=== PATIENT | male | born 1995 | race Caucasian/White ===

== ENCOUNTER 2021-12-13 15:46 | Emergency (ER) | payer OTHER, SELFPAY ==
--- NOTE | ~2021-12-13 | CT_ITS ---
EXAMINATION: NONCONTRAST HEAD CT NONCONTRAST MAXILLOFACIAL CT NONCONTRAST CERVICAL SPINE CT INDICATION INFORMATION: Fall, facial injury. COMPARISON: Cervical spine CT 05/11/2016. CT head 03/23/2016. TECHNIQUE: Separate noncontrast CT examinations of the head, maxillofacial bones, and cervical spine were performed. Coronal and sagittal images were created for each examination at the technologist workstation. This CT examination was performed using dose optimization techniques as appropriate, variously including the following: *Automated exposure control *Adjustment of mA and/or kV according to patient size (this includes techniques or standardized protocols for targeted exams where dose is matched to indication/reason for exam; i.e. extremities or head) *Use of iterative reconstruction technique DLP: 677, 457 and 436 mGy-cm FINDINGS: Head: There is no evidence of acute intracranial hemorrhage or territorial infarction. No abnormal mass effect or midline shift is seen. Funez to white matter differentiation is well preserved. No extra-axial fluid collections are identified. No hydrocephalus. No significant volume loss. There is no abnormal attenuation within the brain parenchyma. No acute soft tissue abnormality. No calvarial fracture. The mastoid air cells are well aerated. Maxillofacial: No acute maxillofacial fractures are seen. Innumerable periapical lucencies and dental cavities with mucosal thickening of the inferior maxillary sinuses. No air-fluid level. The mandibular heads are well-seated in the condylar fossa. The orbits demonstrate a normal appearance bilaterally. The globes are intact, and there are no suspicious findings to suggest retrobulbar hemorrhage. Cervical spine: There is anatomic alignment of the vertebral bodies and posterior elements. The atlantoaxial and atlantooccipital articulations are intact. Vertebral body heights and intervertebral disc spaces are maintained. No evidence of acute fracture. No prevertebral soft tissue swelling. The palatine tonsils are prominent. Only a minimal portion of the left lung apex is included within the field of view, which appears clear. The right apex is outside of the field of view. The thyroid gland is unremarkable. CT/CT cervical spine wo con IMPRESSION: No acute intracranial abnormality. No acute maxillofacial fracture. No acute cervical spine fracture or malalignment. Numerous periapical lucencies and dental cavities, recommend dental referral. There is mucosal thickening of the maxillary sinuses which could potentially be related with odontogenic sinusitis. Correlate clinically. Prominent palatine tonsils, recommend correlation with direct visualization.
--- NOTE | 2021-12-13 07:43 | ECG_ITS ---
Test Reason : syncope Blood Pressure : / mmHG Vent. Rate : 109 BPM Atrial Rate : 109 BPM P-R Int : 156 ms QRS Dur : 078 ms QT Int : 322 ms P-R-T Axes : 054 001 009 degrees QTc Int : 433 ms Sinus tachycardia Minimal voltage criteria for LVH, may be normal variant ( R in aVL ) Possible Inferior infarct (cited on or before 23-MAR-2016) Abnormal ECG When compared with ECG of 13-DEC-2021 16:49, QRS axis Shifted left Non-specific change in ST segment in Lateral leads Referred By: Sharona Mills Electronically Signed By:CHINTAN WEIR
[2021-12-13 16:13] VITALS: BP 144/83; BP 159/100; PULSE 120; PULSE 123; RESP 17; TEMP 37.3; O2SAT 96; O2SAT 97; BMI 32.3
--- NOTE | 2021-12-13 16:33 | ED.GENADULT ---
HPI - General Adult General Chief complaint: Syncope Stated complaint: syncope Time Seen by Provider: 12/13/21 16:33 Source: patient and EMS Mode of arrival: EMS Limitations: no limitations History of Present Illness HPI narrative: Patient is a 26 year old male presenting to the emergency department today after a syncopal episode. Patient states that he was at a car show all day today, not drinking water. Patient states that when he got home, he felt lightheaded and passed out, falling forward, hitting his face on a glass cabinet. Patient states that he remembers everything leading up to the fall and waking up from the fall. Patient states all that is bothering him now is the cut on his forehead. Patient denies any current dizziness, lightheadedness, abdominal pain, nausea, vomiting, fever, chills, blurry vision, double vision, loss of vision, chest pain, difficulty breathing, shortness of breath, back pain, night sweats, pain with urination, increased urinary frequency, increased urinary urgency, blood in his urine or stool, syncope or a near syncopal episode, bowel incontinence, bladder incontinence, bowel retention, bladder retention, or any other complaints at this time. Onset (ago): minute(s) Location: face Radiation: non-radiation Severity: mild Severity scale (1-10): 1 Quality: dull Relieving factors: none Exacerbating factors: none Associated symptoms: denies other symptoms Treatments prior to arrival: none Related Data Allergies Allergy/AdvReac Type Severity Reaction Status Date / Time No Known Allergies Allergy Unverified 01/11/20 19:02 [No Known Allergies*] Review of Systems Constitutional: Constitutional: Reports no additional constitutional complaints, Denies chills, Denies fever(s) and Denies night sweats Eyes: Eyes: Reports no additional eye complaints, Denies blurry vision, Denies change in vision, Denies diplopia, Denies eye discharge, Denies loss of vision and Denies eye pain ENT: Denies dizziness Cardiovascular: Cardiovascular: Reports no additional cardiovascular complaints, Denies chest pain, Denies lightheadedness, Denies Loss of Consciousness and Denies dyspnea Respiratory: Respiratory: Reports no additional respiratory complaints and Denies dyspnea Gastrointestinal: Gastrointestinal: Reports no additional gastrointestinal complaints, Denies abdominal pain, Denies melena, Denies hematochezia, Denies change in bowel habits and Denies change in stool character Genitourinary: Genitourinary: Reports no additional male genitourinary complaints, Denies hematuria, Denies oliguria, Denies difficulty urinating, Denies dysuria, Denies urinary frequency, Denies urinary hesitancy, Denies urinary incontinence and Denies urinary urgency Musculoskeletal: Musculoskeletal: Reports no additional musculoskeletal complaints, Denies numbness and Denies tingling Integumentary/Breasts: Comments: abrasion to the forehead Neurologic: Denies dizziness, Denies loss of vision, Denies numbness and Denies tingling Psychiatric: Psychiatric: Reports no additional psychiatric complaints Endocrine: Endocrine: Reports no additional endocrine complaints Hematologic/Lymphatic: Hematologic/Lymphatic: Reports no additional hematologic/lymphatic complaints Allergic/Immunologic: Allergic/Immunologic: Reports no additional allergic/immunologic complaints PMFSH Past Medical History Attestation statement: The following information was validated with the patient. Source: old records reviewed Social History Social History Advance Directives: No Advance Directives Information Provided: No Physical Exam ED Vital Signs: Vital Signs - 24 hr 12/13/21 16:13 12/13/21 17:46 Temperature 99.1 F 98.2 F Pulse Rate 123 H 94 Respiratory Rate 17 16 Blood Pressure 144/83 H 142/83 H Pulse Oximetry 97 98 Oxygen Delivery Method Room Air Room Air BMI result Body Mass Index 32.3 Const General: cooperative, no acute distress, alert and awake Nutritional Appearance: well nourished Orientation/consciousness: patient oriented x3 Limitations: no limitations [facility] Head: Yes normal to inspection and Yes atraumatic Ears: hearing grossly normal bilaterally and external ears normal General nose exam: Normal external nose present, no nasal discharge noted and no epistaxis Face and sinus: Yes normal facial exam, No abrasion and No laceration Mouth: Normal oral and palatal mucosa present, no drooling and no muffled voice Teeth and gingiva: poor dentition Eyes General: appearance normal, both eyes and all related structures Periorbital: periorbital findings normal Eyelids: Yes eyelids normal Conjunctivae: conjunctivae normal Pupils: Equal, round and reactive pupils present EOM: EOMs intact bilaterally Neck Neck: Yes normal visual inspection, Yes full ROM and Yes no lymphadenopathy Chest Chest palpation & inspection: normal inspection of the chest Resp Effort & Inspection: normal respiratory effort and able to speak in complete sentences Auscultation: clear to auscultation bilaterally Cardio Rate: regular rate Rhythm: regular rhythm GI Inspection: Yes normal to inspection Palpation (GI): Soft to palpation, not firm, nontender, no guarding and not rigid Skin Other: small cut to the forehead, no active bleeding, no gaping areas Neuro General: patient oriented x3 and moves all extremities Cranial nerves: Yes Equal, round and reactive pupils present Cognition (Neuro): normal cognition Motor exam (neuro): 5/5 motor strength present throughout Sensory Exam: Normal double simultaneous stimulation for sensation Coordination: [id number] test normal Extrem General: Yes normal to inspection, Yes full ROM and Yes capillary refill normal Psych Appearance: grossly normal Mental Status: mental status grossly normal Affect: normal affect Attitude: cooperative Thought process: Normal thought process present Thought content: Normal thought content present Insight: Good insight present (Psych) Medical Decision Making MDM Narrative Medical decision making narrative: Patient is a 26 year old male presenting to the emergency department today after a syncopal episode. Patient's physical exam showed a small, superficial, laceration not requiring manual closure, to the center of his forehead with no gaping or active bleeding. Additionally, the patient had poor dentition. Patient's blood work was unremarkable. Patient's EKG was unremarkable. Patient's head, C-Spine and facial CTs showed no acute traumatic process. However, the patient's facial CT did show extensive poor dentition that the radiologist the patient follow up with a dentist for. I explained my physical exam findings as well as all test results to the patient. I answered all questions asked by the patient. Patient stated that he previously followed with a dentist but an incident occurred where the wrong tooth was removed and he has since stopped seeing that dentist. Patient received IV fluids which he stated helped his symptoms significantly. I stressed the importance of the patient taking his medication as prescribed. I stressed the importance of the patient following up with his primary care provider and a dentist. I stressed the importance of the patient returning to the emergency department immediately if his symptoms were to worsen or if he were to develop any dizziness, shortness of breath, difficulty breathing, chest pain, blurry vision, loss of vision, nausea, vomiting, abdominal pain, fever, chills, back pain, or any other complaints. Patient verbalized agreement and understanding with this treatment plan and discharge. Differential Diagnosis Differential Diagnosis: fall, dehydration Medical Records Medical records reviewed: Yes I reviewed the patient's medical records. Lab Data Lab results reviewed: Yes I reviewed the patient's lab results. Result diagrams: 12/13/21 17:10 12/13/21 17:10 Labs: Lab Results 12/13/21 12/13/21 12/13/21 Range/Units 17:10 17:10 17:10 WBC 7.8 (4.8-10.8) X10*3/uL RBC 4.79 (4.60-5.80) X10*6/uL Hgb 13.6 L (14.0-18.0) g/dl Hct 40.7 L (42.0-52.0) % MCV 85.0 (80.0-98.0) fL MCH 28.4 (27.0-33.0) pg MCHC 33.4 (31.0-36.0) g/dl RDW 13.2 (11.0-16.0) % Plt Count 247 (160-400) X10*3/uL MPV 10.3 (9.4-12.4) fL Immature Gran % (Auto) 0.6 H (0.0-0.4) % Neut % (Auto) 68.8 (45-73) % Lymph % (Auto) 18.4 L (20-40) % Hitchcock % (Auto) 8.8 (2-11) % Eos % (Auto) 3.1 (0-4) % Baso % (Auto) 0.3 (0-2) % Lymph # (Auto) 1.4 (1.2-4.9) X10*3/uL Hitchcock # (Auto) 0.7 (0.1-1.2) X10*3/uL Eos # (Auto) 0.2 (0.0-0.4) X10*3/uL Baso # (Auto) 0.0 (0.0-0.2) X10*3/uL Abs Immat Gran (auto) 0.05 H (0.00-0.03) X10*3/uL Absolute Neuts (auto) 5.3 (2.0-8.3) x10*3/uL Absolute Nucleated RBC 0.000 (0.0-0.012) X10*3/uL Nucleated RBC % (auto) 0.0 (0.0-0.2) /100WBC Sodium 142 (135-145) mmol/L Potassium 4.7 (3.3-5.1) mmol/L Chloride 107 (96-108) mmol/L Carbon Dioxide 26 (22-29) mmol/L Anion Gap 14 (12-20) BUN 13 (9-16) mg/dL Creatinine 0.97 (0.5-1.4) mg/dL Estim Creat Clear Calc 119.5 Estimated GFR > 60 Random Glucose 98 (60-115) mg/dL Calcium 8.9 (8.4-10.2) mg/dL Magnesium 2.0 (1.6-2.6) mg/dL Total Bilirubin 0.4 (0.0-1.0) mg/dL AST 14 (5-37) U/L ALT 21 (0-40) U/L Alkaline Phosphatase 74 (39-117) U/L Total Creatine Kinase 143 (38-174) U/L Troponin I High Sens < 3.5 (<3.5-35.0) ng/L Total Protein 6.5 (6.5-8.0) g/dL Albumin 3.9 (3.5-5.0) g/dL Imaging Data CT scan head, C-Spine, facial: Attestation: I personally reviewed and interpreted this imaging study as follows: My impression: No acute trauamtic process. Radiologist's impression: EXAMINATION: NONCONTRAST HEAD CT NONCONTRAST MAXILLOFACIAL CT NONCONTRAST CERVICAL SPINE CT INDICATION INFORMATION: Fall, facial injury. COMPARISON: Cervical spine CT 05/11/2016. CT head 03/23/2016. TECHNIQUE: Separate noncontrast CT examinations of the head, maxillofacial bones, and cervical spine were performed. Coronal and sagittal images were created for each examination at the technologist workstation. This CT examination was performed using dose optimization techniques as appropriate, variously including the following: *Automated exposure control *Adjustment of mA and/or kV according to patient size (this includes techniques or standardized protocols for targeted exams where dose is matched to indication/reason for exam; i.e. extremities or head) *Use of iterative reconstruction technique DLP: 677, 457 and 436 mGy-cm FINDINGS: Head: There is no evidence of acute intracranial hemorrhage or territorial infarction. No abnormal mass effect or midline shift is seen. Funez to white matter differentiation is well preserved. No extra-axial fluid collections are identified. No hydrocephalus. No significant volume loss. There is no abnormal attenuation within the brain parenchyma. No acute soft tissue abnormality. No calvarial fracture. The mastoid air cells are well aerated. Maxillofacial: No acute maxillofacial fractures are seen. Innumerable periapical lucencies and dental cavities with mucosal thickening of the inferior maxillary sinuses. No air-fluid level. The mandibular heads are well-seated in the condylar fossa. The orbits demonstrate a normal appearance bilaterally. The globes are intact, and there are no suspicious findings to suggest retrobulbar hemorrhage. Cervical spine: There is anatomic alignment of the vertebral bodies and posterior elements. The atlantoaxial and atlantooccipital articulations are intact. Vertebral body heights and intervertebral disc spaces are maintained.? No evidence of acute fracture. No prevertebral soft tissue swelling. The palatine tonsils are prominent. Only a minimal portion of the left lung apex is included within the field of view, which appears clear. The right apex is outside of the field of view. The thyroid gland is unremarkable. CT/CT head/brain wo con IMPRESSION: No acute intracranial abnormality. ? No acute maxillofacial fracture. ? No acute cervical spine fracture or malalignment. ? Numerous periapical lucencies and dental cavities, recommend dental referral. There is mucosal thickening of the maxillary sinuses which could potentially be related with odontogenic sinusitis. Correlate clinically. ? Prominent palatine tonsils, recommend correlation with direct visualization. Dictated By: Raven Hein Signed By: Electronically signed by Raven?Angel Luis 12/13/21 4516 ECG Data Attestation: I personally reviewed and interpreted this ECG as follows: Prior ECG tracings: available for review Interpretation: Vent. Rate: 118 BPM ? ? Atrial Rate: 118 BPM P-R Int: 150 ms? QRS Dur: 078 ms QT Int: 316 ms ? ? ? P-R-T Axes: 000 180 163 degrees QTc Int: 442 ms ? Sinus tachycardia Right axis deviation Possible Inferior infarct (cited on or before 23-MAR-2016) Abnormal ECG When compared with ECG of 23-MAR-2016 12:55, QRS axis Shifted right T wave inversion now evident in Lateral leads DD/ [id number] Discharge Plan Discharge Clinical Impression: Dehydration Patient Disposition: Home, Self-Care Instructions: Dehydration (ED) Additional Instructions: Follow up with your primary care provider. Return to the emergency department immediately if your symptoms worsen or if you develop any dizziness, shortness of breath, difficulty breathing, chest pain, blurry vision, loss of vision, nausea, vomiting, abdominal pain, fever, chills, back pain, or any other complaints. Call or visit any of the clinics below to establish with a dentist: [facility] [address] [place] [address] [facility] [address] [facility], [address] [address] [facility] [address] [place] [address] [facility] [address] [place] [id number] [facility] [address] [place] [address] [place] [address] [place] [address] [place] [facility] [place] (Call to establish and follow up with a primary care provider. If you already have a primary care provider, please call and follow up with them. ) [facility] [place] [facility] [place]Provider Group] (Call to establish and follow up with a primary care provider. If you already have a primary care provider, please call and follow up with them. ) [facility] [place] [facility] [Provider Group] (Call to establish and follow up with a primary care provider. If you already have a primary care provider, please call and follow up with them. ) Stand Alone Forms: Work/School Release Print Language: German
--- NOTE | 2021-12-13 16:34 | ECG_ITS ---
Test Reason : SYNCOPEE Blood Pressure : / mmHG Vent. Rate : 118 BPM Atrial Rate : 118 BPM P-R Int : 150 ms QRS Dur : 078 ms QT Int : 316 ms P-R-T Axes : 000 180 163 degrees QTc Int : 442 ms Sinus tachycardia Right axis deviation Possible Inferior infarct (cited on or before 23-MAR-2016) Abnormal ECG When compared with ECG of 23-MAR-2016 12:55, QRS axis Shifted right T wave inversion now evident in Lateral leads Referred By: Ana Cristina Barragan Electronically Signed By:CHINTAN WEIR
[2021-12-13 17:17] LABS: MANUAL DIFF FLAG NO
[2021-12-13 17:18] LABS: Basophils Percent Auto 0.3 % (0-2); Eosinophils Absolute Auto 0.2 X10*3/uL (0.0-0.4); Eosinophils Percent Auto 3.1 % (0-4); Hematocrit 40.7 % (42.0-52.0); Hemoglobin 13.6 g/dl (14.0-18.0); Imm Gran Abs Auto 0.05 X10*3/uL (0.00-0.03); Imm Gran Pct Auto 0.6 % (0.0-0.4); Lymphocytes Absolute Auto 1.4 X10*3/uL (1.2-4.9); Lymphocytes Percent Auto 18.4 % (20-40); Mean Corpuscular HGB Conc 33.4 g/dl (31.0-36.0); Mean Corpuscular Hemoglobin 28.4 pg (27.0-33.0); Mean Platelet Volume 10.3 fL (9.4-12.4); Monocytes Absolute Auto 0.7 X10*3/uL (0.1-1.2); Monocytes Percent Auto 8.8 % (2-11); Neutrophils Absolute Auto 5.3 x10*3/uL (2.0-8.3); Neutrophils Percent Auto 68.8 % (45-73); Platelet Count 247 X10*3/uL (160-400); Red Blood Count 4.79 X10*6/uL (4.60-5.80); Red Cell Distribution Width 13.2 % (11.0-16.0); White Blood Count 7.8 X10*3/uL (4.8-10.8)
[2021-12-13] MEDS: 0.9 % Sodium Chloride 1,000 ML 999 ML IV (17:34)
[2021-12-13 17:38] LABS: Alanine Aminotransferase 21 U/L (0-40); Albumin Level 3.9 g/dL (3.5-5.0); Alkaline Phosphatase 74 U/L (39-117); Anion Gap 14 (12-20); Aspartate Amino Transferase 14 U/L (5-37); Bilirubin Total 0.4 mg/dL (0.0-1.0); Blood Urea Nitrogen 13 mg/dL (9-16); Calcium 8.9 mg/dL (8.4-10.2); Carbon Dioxide 26 mmol/L (22-29); Chloride 107 mmol/L (96-108); Creatinine Clr Calc Pharmacy 119.5; Estimated Glomerular Filt Rate > 60; Glucose Random 98 mg/dL (60-115); Potassium 4.7 mmol/L (3.3-5.1); Sodium 142 mmol/L (135-145); Total Protein 6.5 g/dL (6.5-8.0)
[2021-12-13 17:41] LABS: Troponin-I High Sensitivity < 3.5 ng/L (<3.5-35.0)
[2021-12-13 17:46] VITALS: BP 142/83; PULSE 94; RESP 16; TEMP 36.8; O2SAT 98
--- NOTE | 2021-12-13 18:41 | PC.NURSE ---
a/o x4 . pearrla . heart rate regular at 88 beats . lungs clear . skin pink warm and dry . patient has superficial scratches to bridge of nose , tip of nose from syncope episode . patient reports feeling dizzy and the next thing he knew he was on thew ground . abdomen soft . non tender . positive bowel sounds . patient aware of need of urine sample . patient aware of plan of care .
== END 2021-12-13 19:11 | disposition home or self-care (01) ==
PROVIDERS: Physician Assistant Medical; Emergency Provider Emergency Medicine
DX: E86.0 Dehydration (principal); S01.81XA Laceration without foreign body of other part of head, initial encounter; W01.190A Fall on same level from slipping, tripping and stumbling with subsequent striking against furniture, initial encounter; F12.90 Cannabis use, unspecified, uncomplicated; Y93.89 Activity, other specified; Y92.019 Unspecified place in single-family (private) house as the place of occurrence of the external cause; Y99.9 Unspecified external cause status; Z87.891 Personal history of nicotine dependence
CPT/HCPCS: 36415; 70450; 70486; 72125; 80053; 82550; 83735; 84484; 85025; 93005; 96360; 99284; 99285

== ENCOUNTER 2022-06-16 08:47 | Emergency (ER) | payer OTHER, SELFPAY ==
[2022-06-16 08:56] VITALS: BP 137/91; PULSE 96; RESP 18; TEMP 36.4; O2SAT 97; BMI 32.3
--- NOTE | 2022-06-16 09:19 | ED.DENTAL ---
HPI - Dental/Oral General Chief complaint: Dental/Oral Stated complaint: Dental pain Time Seen by Provider: 06/16/22 09:17 Source: patient Mode of arrival: ambulatory History of Present Illness HPI Narrative: 26-year-old male with no significant past medical history presenting to the ED complaining of left lower dental pain x few days with radiation to neck and ear. Reports chronic dental issues needing all teeth extracted however unable to get in with dentist. Denies intraoral swelling, drainage, fever, chills, difficulty/inability to swallow MD Complaint: tooth pain Related Data Previous Rx's Medication Instructions Recorded acetaminophen 500 mg tablet 500 mg PO Q6H PRN fever or pain 06/16/22 (Tylenol Extra Strength) #14 tabs amoxicillin 875 mg-potassium 1 tab PO BID 7 days #14 tabs 06/16/22 clavulanate 125 mg tablet ibuprofen 800 mg tablet 800 mg PO Q8H PRN pain #14 tabs 06/16/22 Allergies Allergy/AdvReac Type Severity Reaction Status Date / Time No Known Allergies Allergy Unverified 01/11/20 19:02 [No Known Allergies*] Review of Systems Review of Systems: Constitutional: No Fever, No Chills ENT/Mouth: +dental pain, + Ear Pain, No Nasal Congestion, No Hoarseness, No sore throat, No Rhinorrhea, No Swallowing Difficulty Cardiovascular: No Chest Pain, No SOB Respiratory: No Cough Gastrointestinal: No Nausea, No Vomiting,No Abdominal pain Musculoskeletal: No joint pain, No Myalgias, No Joint Swelling Skin: No Skin Lesions, No rash Neuro: No Weakness, +PRIETO Yes all other systems are reviewed and are negative Constitutional: Constitutional: Reports as per [facility] Past Medical History Attestation statement: The following information was validated with the patient. Social History Social History Patient Tobacco Use Status: Former Tobacco user Substance Use Type: Marijuana Advance Directives: No Advance Directives Information Provided: No Physical Exam Vital Signs: Vital Signs: Last Vital Signs Temp 97.6 F 06/16/22 08:56 Pulse 96 06/16/22 08:56 Resp 18 06/16/22 08:56 BP 137/91 H 06/16/22 08:56 Pulse Ox 97 06/16/22 08:56 O2 Del Method 06/16/22 08:56 BMI result Body Mass Index 32.3 Const: General: cooperative, healthy appearing and no acute distress Orientation/consciousness: patient oriented x3 Limitations: no limitations HEENT: Head: Yes normal to inspection and Yes atraumatic Ears: hearing grossly normal bilaterally, external ears normal, TM's normal bilaterally and mastoids normal General nose exam: Normal external nose present Face and sinus: Yes normal facial exam Mouth: Normal oral and palatal mucosa present and no drooling Teeth and gingiva: caries, gingiva abnormal (+L lower gingival erythema and tenderness. No fluctuance/induration) without any purulent discharge and poor dentition Throat: Yes posterior oropharynx normal, Yes tonsils normal, Yes uvula midline, No peritonsillar mass and No uvular edema Eyes: General: appearance normal, both eyes and all related structures EOM: EOMs intact bilaterally Neck: Neck: Yes normal visual inspection and Yes no meningeal signs Resp: Effort & Inspection: normal respiratory effort and no respiratory distress Cardio: Rate: regular rate Skin: Rashes: no rashes Wounds: no wounds Neuro: General: patient oriented x3, tone normal and no meningeal signs Gait exam (Neuro): Normal gait present Extrem: General: Yes normal to inspection Medications Administered Discontinued Medications Generic Name Dose Route Start Last Admin Trade Name Freq PRN Reason Stop Dose Admin Amoxicillin/Clavulanate Potassium 875 mg 06/16/22 09:23 06/16/22 09:35 Amoxicillin/Potassium Clav 875 Mg Tablet PO 06/16/22 09:24 875 mg ONCE ONE Administration Ibuprofen 600 mg 06/16/22 09:23 06/16/22 09:35 Ibuprofen 600 Mg Tablet PO 06/16/22 09:24 600 mg ONCE ONE Administration Medical Decision Making Medical Decision Making MDM Narrative: 26-year-old male with no significant past medical history presenting to the ED complaining of left lower dental pain x few days with radiation to neck and ear. On exam vital signs stable, NAD, nontoxic appearing, physical exam as noted above with diffuse dental caries/poor dentition and left lower gingival erythema, tenderness and inflammation. No fluctuance/induration. No evidence of dental or gingival abscess. Plan: P.o. antibiotics, dentistry follow-up Results discussed with patient including worrisome signs and symptoms and strict return precautions, and when to return to the emergency department. They verbalized understanding and feel safe for discharge at this time. Differential Diagnosis Differential Diagnoses: The differential diagnosis associated with the presentation includes As above Prescription Management I considered prescription management with: Pain Medication and Antibiotic Discharge Plan Discharge Clinical Impression: Dental caries Patient Disposition: Home, Self-Care Instructions: Tooth Extraction (DC) Additional Instructions: Augmentin is antibiotics because prescribed. Take ibuprofen and Tylenol for pain and inflammation. Ice painful area. If pain or symptoms become worse or persistent, you drainage in mouth, or facial swelling/fever return to the ED Prescriptions: New amoxicillin-pot clavulanate 875-125 mg tablet 1 tab PO BID 7 Days Qty: 14 0RF ibuprofen 800 mg tablet 800 mg PO Q8H PRN (Reason: pain) Qty: 14 0RF acetaminophen [Tylenol Extra Strength] 500 mg tablet 500 mg PO Q6H PRN (Reason: fever or pain) Qty: 14 0RF Referrals: Zeke Anders [Dentist] - Randy Cates DMD [Dentist] - Slava Hanks DMD [Dentist] - Interventions: ED Discharge Assessment Last Done: 06/16/22 09:46 Discharge Date/Time: 06/16/22 09:48
[2022-06-16] MEDS: Ibuprofen 600 MG TABLET PO (09:35)
[2022-06-16] MEDS: Amoxicillin/Potassium Clav 875 MG TABLET PO (09:35)
== END 2022-06-16 09:48 | disposition home or self-care (01) ==
PROVIDERS: Emergency Provider Emergency Medicine
DX: K02.9 Dental caries, unspecified (principal); K08.89 Other specified disorders of teeth and supporting structures; Z87.891 Personal history of nicotine dependence; F12.90 Cannabis use, unspecified, uncomplicated
CPT/HCPCS: 99283

== ENCOUNTER 2022-09-02 06:25 | Emergency (ER) | payer OTHER, SELFPAY ==
[2022-09-02 06:29] VITALS: BP 155/107; PULSE 84; RESP 17; TEMP 36.1; O2SAT 99; BMI 33.9
--- NOTE | 2022-09-02 07:48 | ED_ITS ---
HPI - Dental/Oral General Chief complaint: Dental/Oral Stated complaint: Oral and jaw pain Time Seen by Provider: 09/02/22 07:38 Source: patient Mode of arrival: ambulatory Limitations: no limitations History of Present Illness HPI Narrative: 26-year-old male who presents emergency department for evaluation right upper jaw pain secondary to dental infection/poor dentition. The patient states that he has been having right upper jaw pain for months. He states that he was seen here in our emergency department and other emergency depart recently for similar pain. Patient states that he has seen a dentist his referred him to an oral surgeon. He states that the oral surgeon is not able to see him for another month. He is currently complaining of pain in his right upper jaw, the pain is a constant, dull pain which is greater than 10/10. He states that his jaw is swollen. He denied fever or chills. Patient does have a history of cardiomyopathy but he states that he has not been able follow-up with a tanning solution maker since he does not have a PCP. Related Data Previous Rx's Medication Instructions Recorded acetaminophen 500 mg tablet 500 mg PO Q6H PRN fever or pain 06/16/22 (Tylenol Extra Strength) #14 tabs amoxicillin 875 mg-potassium 1 tab PO BID 7 days #14 tabs 06/16/22 clavulanate 125 mg tablet ibuprofen 800 mg tablet 800 mg PO Q8H PRN pain #14 tabs 06/16/22 clindamycin HCl 300 mg capsule 600 mg PO TID 7 days #42 caps 09/02/22 morphine 15 mg immediate release 15 mg PO Q4-6H PRN pain #14 tabs 09/02/22 tablet Allergies Allergy/AdvReac Type Severity Reaction Status Date / Time No Known Allergies Allergy Verified 09/02/22 06:27 [No Known Allergies*] Review of Systems Review of Systems: Yes all other systems are reviewed and are negative [facility] Past Medical History [facility] Narrative: Past medical history: Dental caries with dental infection, cardiomyopathy. Social History Social History Patient Tobacco Use Status: Former Tobacco user Substance Use Type: Marijuana Advance Directives: No Advance Directives Information Provided: Yes Physical Exam Vital Signs: Vital Signs: Last Vital Signs Temp 98.1 F 09/02/22 07:54 Pulse 77 09/02/22 07:54 Resp 18 09/02/22 07:54 BP 151/100 H 09/02/22 07:54 Pulse Ox 97 09/02/22 07:54 O2 Del Method Room Air 09/02/22 07:54 BMI result Body Mass Index 33.9 Vital signs were reviewed, patient does have an elevated blood pressure but he is having pain General: Awake, alert, male patient, pleasant, cooperative in no distress Mouth: The patient has severe dental jayme right upper jaw . The patient has tenderness over the decayed teeth. There is no gingival tenderness or gingival swelling. Patient does have some mid tree to his right side of his face compare to the left. Neck: Supple no adenopathy Medical Decision Making Medical Decision Making MDM Narrative: 26-year-old male with a known dental caries who has just completed a course of antibiotics (amoxicillin) without any relief of his discomfort. Based on his exam I suspect that he has ongoing infection therefore he was started on clindamycin 600 mg 3 times a day for 7 days. He was advised to take ibuprofen and Tylenol for pain and for pain not relieved by these medications she was prescribed morphine. Patient was advised to contact his oral surgeon to see if he can move up his appointment. Patient was also given numbers for PCPs and ordered to get follow-up for his cardiomyopathy. Differential Diagnosis Differential includes was not limited to dental caries, dental abscess Discharge Plan Discharge Clinical Impression: Dental caries, Dental abscess Patient Disposition: Home, Self-Care Instructions: Dental Abscess (ED) Additional Instructions: Your pain is most likely caused by an infection of the teeth in your right upper jaw that her DKA below the gum line. Take clindamycin 300 mg, 2 pill 3 times a day for 7 days Take ibuprofen 200 mg pills, 3 pills every 6 hours as needed for pain. Take Tylenol (acetaminophen) 2 pills every 4-6 hours as needed for pain. For pain not relieved by ibuprofen or Tylenol take morphine 15 mg pills, 1 pill every 4 hours as needed for pain. This medication will make you sleepy, do not drive or work while taking this medication. Morphine is a narcotic medication and can be addicting. If you are concerned about addiction you can ask the pharmacist for less pills or do not get this prescription filled. Call your oral surgeon's office today to see if they can move up your appointment Please return to the emergency department if your symptoms get worse or if you develop any symptoms that are concerning to you. Call the numbers that I gave you to try to get a primary care doctor so that you can get follow-up for your cardiomyopathy. Cardiomyopathy can get worse without treatment so it is important that you get help with this condition. Prescriptions: New clindamycin HCl 300 mg capsule 600 mg PO TID 7 Days Qty: 42 0RF morphine 15 mg tablet 15 mg PO Q4-6H PRN (Reason: pain) Qty: 14 0RF Rx Instructions: Patient may request partial fill; Partial Fill upon patient request. No Action amoxicillin-pot clavulanate 875-125 mg tablet 1 tab PO BID 7 Days Qty: 14 0RF ibuprofen 800 mg tablet 800 mg PO Q8H PRN (Reason: pain) Qty: 14 0RF acetaminophen [Tylenol Extra Strength] 500 mg tablet 500 mg PO Q6H PRN (Reason: fever or pain) Qty: 14 0RF Stand Alone Forms: Work/School Release
[2022-09-02 07:54] VITALS: BP 151/100; PULSE 77; RESP 18; TEMP 36.7; O2SAT 97
--- NOTE | 2022-09-02 08:05 | PC.NURSE ---
eval and dc by provider
== END 2022-09-02 08:06 | disposition home or self-care (01) ==
PROVIDERS: Emergency Provider Emergency Medicine Emergency Medical Services
DX: K02.9 Dental caries, unspecified (principal); K04.7 Periapical abscess without sinus; R68.84 Jaw pain
CPT/HCPCS: 99282; 99283